=== PATIENT | male | born 1965 | race Caucasian/White ===

== ENCOUNTER 2018-01-29 09:41 | Emergency (ER) | payer OTHER ==
[~2018-01-29] VITALS: Ht 180.3 cm; Wt 95.4 kg
[~2018-01-29 09:41] MED LIST: ATORVASTATIN CA40 MG PO; DURAGESIC100 MCG TD; FLUOXETINE HCL20 MG PO; HYDROCHLOROTH12.5 M3 PO; LEXAPRO10 MG PO; LISINOPRIL2.5 MG PO; MS CONTIN,ORAMO15 M1 PO; MUCUS RELIEF D1 EAC1 PO; OMEPRAZOLE20 MG PO; OPANA ER10 MG PO; OXYCODONE HCL30 MG PO; OXYCONTIN15 MG PO; PERCOCET 10-321 EACH PO; QUETIAPINE FUM200 MG PO; SEROQUEL300 MG PO; TAMSULOSIN HCL0.4 MG PO; TIZANIDINE HCL4 MG PO; TRAZODONE HCL150 MG PO
[2018-01-29] MEDS ORDERED: SOMA350 MG PO (12:22)
[2018-01-29 12:33] VITALS: BP 127/89
== END 2018-01-29 12:41 | disposition home or self-care (01) ==
LOC: EME 09:41
DX: S39.012A Strain of muscle, fascia and tendon of lower back, initial encounter (principal); T84.038A Mechanical loosening of other internal prosthetic joint, initial encounter; X50.0XXA Overexertion from strenuous movement or load, initial encounter; J44.9 Chronic obstructive pulmonary disease, unspecified; K21.9 Gastro-esophageal reflux disease without esophagitis; G89.29 Other chronic pain; M54.9 Dorsalgia, unspecified; F31.9 Bipolar disorder, unspecified; F32.9 Major depressive disorder, single episode, unspecified; F17.200 Nicotine dependence, unspecified, uncomplicated; Z79.891 Long term (current) use of opiate analgesic; Z98.1 Arthrodesis status; Z88.5 Allergy status to narcotic agent; Z88.8 Allergy status to other drugs, medicaments and biological substances
CPT/HCPCS: 72100; 99281; 99285; J1885; J2060